=== PATIENT | male | born 1975 ===

== ENCOUNTER 2024-09-18 11:35 | Inpatient (IN) | payer OTHER ==
[2024-09-18] MEDS ORDERED: Vancomycin IV 1 GM in SODIUM CHLORIDE 0.9% 250ML 250 ML IV SCH (12:45)
[2024-09-18] MEDS ORDERED: SODIUM CHLORIDE 0.9% 1000ML 1,000 ML IV SCH (12:45)
[2024-09-18 13:04] VITALS: BP 140/79; PULSE 86; RESP 19; TEMP 98.4; O2SAT 98
== END 2024-09-18 13:40 | disposition left against medical advice (07) | DRG 392 ==
LOC: MED/SURG2 12:40
PROVIDERS: ADMIT Internal Medicine; ATTEND Internal Medicine
DX: R10.9 Unspecified abdominal pain (principal); R19.7 Diarrhea, unspecified; R50.9 Fever, unspecified; Z53.29 Procedure and treatment not carried out because of patient's decision for other reasons